=== PATIENT | female | born 1950 | race Caucasian/White ===

== ENCOUNTER 2018-03-31 04:24 | Inpatient (IN) | payer MEDICARE ==
[~2018-03-31] VITALS: Ht 170.2 cm; Wt 56.7 kg
[~2018-03-31 04:24] MED LIST: IBUP200C5 PO
[2018-03-31] MEDS ORDERED: MAG HYDROX/AL HYDROX/SIMETH 30 ML UDC PO PRN (06:00)
[2018-03-31] MEDS ORDERED: MAGNESIUM HYDROXIDE 30 ML UDC PO PRN (06:00)
[2018-03-31] MEDS ORDERED: ACETAMINOPHEN 325 MG TABLET PO PRN (06:00)
[2018-03-31 08:00] VITALS: BP 124/75
--- NOTE | 2018-03-31 08:22 | NUR ---
NEEDLE GRADER NOTE: REPORT GIVEN FROM HI TEACHER. PATIENT ARRIVED ON THE UNIT AT 0600. PATIENT IS CONFUSED AND IS A POOR HISTORIAN. UNABLE TO DO MUCH ASSESSING. PATIENT REFUSED TO SIGN ADMISSION PAPERS. BELONGINGS LOGGED INTO THE CHART. SKIN ASSESSMENT DONE AND IN CHART. PSYCHIATRIST NOTIFIED AND ORDERS IN. MED RECON IS BEING DONE AT THE MOMENT BY EFREM. PATIENT IS CONFUSED AND SLEEPING. UNIT POLICY AND PROCEDURES WILL BE EXPLAINED TO PATIENT UPON WAKING UP.
--- NOTE | 2018-03-31 11:11 | NUR ---
INITIAL DISCHARGE PLAN: Per pts sister Angel De Luna [phone], pt may need SNF placement. However stated that if pt refuses to go to a SNF her and sister Anne-Marie [phone] will pick pt up from hospital and take her to live with them in [facility]. SW will help form a safe and proper discharge in collaboration with MD and pts sisters.
[2018-03-31 16:10] VITALS: BP 118/79
[2018-03-31] MEDS: OLANZAPINE 5 MG/TAB.RAPDIS PO SCH ×2 (21:00→21:13)
[2018-03-31] MEDS: ZOLPIDEM TARTRATE 5 MG TABLET PO PRN (21:13)
--- NOTE | 2018-03-31 21:15 | NUR ---
GPS RN NOTES. PT. COMPLAINING OF BEING UNABLE TO FALL ASLEEP. ZOLPIDEM GIVEN ORDERED WILL CONTINUE TO MONITOR FOR SAFETY.
[2018-04-01 07:55] LABS: CHOLESTEROL 127 mg/dL (<200); HDL CHOLESTEROL 64 mg/dL (40-60); LDL 56 mg/dL (0-99); TRIGLYCERIDES 61 mg/dL (30-150)
[2018-04-01 07:57] LABS: ALBUMIN 3.2 g/dL (3.4-5.0); BILIRUBIN,TOTAL 1.5 mg/dL (0.2-1.0); CREATININE 0.5 mg/dL (0.6-1.3); POTASSIUM 3.4 mmol/L (3.5-5.1); TOTAL PROTEIN, SERUM 7.6 g/dL (6.4-8.2)
[2018-04-01 08:15] VITALS: BP 121/82
[2018-04-01] MEDS: OLANZAPINE 5 MG/TAB.RAPDIS PO SCH ×2 (09:00→21:00)
--- NOTE | 2018-04-01 09:33 | NUR ---
GPS/RN-NOTES PATIENT REFUSED ZYPREXA 2.5MG P.O DESPITE ENCOURAGEMENT . OFFERED X3 PATIENT STATED" NO, I DON'T WANT IT".
[2018-04-01] MEDS ORDERED: POTASSIUM CHLORIDE 20 MEQ TAB.PRT.SR PO ONE (10:00)
[2018-04-01 10:01] LABS: BASOPHILS % (AUTO) 0.2 % (0.0-2.0); EOSINOPHILS % (AUTO) 0.9 % (0.0-6.0); HEMATOCRIT 42 % (33-45); HEMOGLOBIN 13.8 g/dL (11.5-14.8); LYMPHOCYTES # (AUTO) 1.7 /CMM (0.8-4.8); LYMPHOCYTES % (AUTO) 23.3 % (20.0-44.0); MEAN CORPUSCULAR HEMOGLOBIN 33 PG (26.0-33.0); MEAN CORPUSCULAR HGB CONC 33 g/dl (31.0-36.0); MEAN CORPUSCULAR VOLUME 100 fL (82-100); MONOCYTES # (AUTO) 0.7 /CMM (0.1-1.30); MONOCYTES % (AUTO) 10.2 % (2.0-12.0); NEUTROPHILS # (AUTO) 4.7 /CMM (1.8-8.9); NEUTROPHILS % (AUTO) 65.4 % (43.0-81.0); PLATELET COUNT (AUTO) 199 /CMM (150-450); RDW COEFFICIENT OF VARIATION 13.9 (11.5-15.0); RED BLOOD CELL COUNT(AUTO) 4.15 MIL/uL (4.0-5.2); WHITE BLOOD COUNT (AUTO) 7.3 K/uL (4.3-11.0)
[2018-04-01 16:00] VITALS: BP 128/84
[2018-04-01 20:00] VITALS: BP 116/76
--- NOTE | 2018-04-01 20:05 | NUR ---
GPS RN NOTE: RECEIVED PATIENT IN TV ROOM ALERT AND ORIENTED X 3, CALM, WATCHING TV. NO ACUTE DISTRESS NOTED. DENIES SI, HI. NO C/O PAIN OR DISCOMFORT AT THIS TIME. WILL CONTINUE TO MONITOR Q15MIN ROUNDS FOR SAFETY AND BEHAVIOR.
--- NOTE | 2018-04-01 21:05 | NUR ---
REFUSED ZYDIS HS DOSE.
--- NOTE | 2018-04-01 23:30 | NUR ---
PT AGITATED, WALKING IN HALLWAY WITH WALKER AND TRIED TO PULL FIRE ALARM. HOSTILE TO STAFF. REFUSING PRNS. STATED SHE "WILL CALL NUTRITION REPRESENTATIVE DIPAK SYKES TO GET PRESIDENT HOLLY TO GIVE HER THIS BUILDING BECAUSE SHE IS NOT ALLOWED TO LEAVE TONIGHT". REDIRECTED WITH EMOTIONAL SUPPORT AND REALITY ORIENTATION PROVIDED AND PATIENT ESCORTED BACK TO ROOM WITHOUT INCIDENT.
--- NOTE | 2018-04-02 04:20 | NUR ---
PT AWAKE ALL NIGHT, HYPERVERBAL IN BED TALKING TO HERSELF. REALITY ORIENTATION PRN, REFUSES PRNS.
[2018-04-02] MEDS: OLANZAPINE 5 MG/TAB.RAPDIS PO SCH ×3 (08:02→21:00)
[2018-04-02] MEDS: LORAZEPAM 1 MG TABLET PO PRN (08:02)
--- NOTE | 2018-04-02 08:02 | NUR ---
RN NOTES ADMINISTERED ATIVAN 1 MG PO PRN FOR ANXIETY, PARANOIA, PATIENT AWOL RISK. V/S TAKEN BP -150/95, P-96, CONTINUED MONITORING.
[2018-04-02 09:15] VITALS: BP 150/95
[2018-04-02 16:00] VITALS: BP 147/97
--- NOTE | 2018-04-02 21:10 | NUR ---
PT REFUSED ZYPREXA ZYDIS AT 2100 STARTED LAUGHING LOUDLY AND REMAINS HOSTILE TO STAFF WHEN INTERACTION INITIATED. CONTINUES TO WATCH TV GUARDED WITHOUT INTERACTION WITH PEERS OR STAFF.
[2018-04-02 21:14] VITALS: BP 133/81
--- NOTE | 2018-04-02 23:06 | NUR ---
AUDITORY HALLUCINATIONS, HAVING CONVERSATIONS LOUDLY IN BED. REALITY ORIENTATION PRN AND LINE OF SIGHT FOR SAFETY.
--- NOTE | 2018-04-03 07:20 | NUR ---
gps rn initial notes Received patient in the room standing up and verbally talking. Per night nurse patient did not sleep all night and refused all her medications. Will continue to monitor and encourage patient to take her medications.
[2018-04-03 08:00] VITALS: BP 118/88
[2018-04-03] MEDS: OLANZAPINE 5 MG/TAB.RAPDIS PO SCH ×2 (08:25→20:50)
[2018-04-03 09:00] VITALS: BP 118/88
[2018-04-03] MEDS: FOLIC ACID 1 MG TABLET PO SCH ×2 (10:30→11:12)
[2018-04-03] MEDS: THIAMINE HCL 100 MG TABLET PO SCH ×2 (10:30→11:12)
[2018-04-03] MEDS: LORAZEPAM 1 MG TABLET PO PRN (11:12)
--- NOTE | 2018-04-03 11:22 | NUR ---
gps notes Patient is agitated and ativan 1 mg was about to give and patient threw away the medication on the floor and wasted with other RN. Will continue to monitor patient and agitation.
--- NOTE | 2018-04-03 11:32 | NUR ---
gps notes patient refused blood draw.
[2018-04-03 16:00] VITALS: BP 153/93
--- NOTE | 2018-04-03 19:18 | NUR ---
RN Notes Patient in the activity room, sitting in Kelsy chair, watching TV. Pt is alert and oriented x1, confused and disoriented, and continously talking to herself, constant reorientation given. Will continue to monitor and maintain safety.
[2018-04-03 19:56] VITALS: BP 161/90
[2018-04-04 08:00] VITALS: BP 147/85
[2018-04-04] MEDS: FOLIC ACID 1 MG TABLET PO SCH (08:31)
[2018-04-04] MEDS: THIAMINE HCL 100 MG TABLET PO SCH (08:31)
[2018-04-04] MEDS: OLANZAPINE 5 MG/TAB.RAPDIS PO SCH ×2 (08:31→22:06)
--- NOTE | 2018-04-04 10:46 | NUR ---
RN NOTE: PATIENT IS AGITATED. BOBBI ORDERED ZYPREXA 10 MG IM NOW. GIVEN.
[2018-04-04] MEDS ORDERED: OLANZAPINE 10 MG VIAL IM ONE (11:00)
[2018-04-04 16:48] VITALS: BP 107/73
[2018-04-04] MEDS: LORAZEPAM 1 MG TABLET PO PRN (17:42)
--- NOTE | 2018-04-04 17:47 | NUR ---
RN NOTE: PATIENT IS YELLING AND TALKING TO SELF. MAKING THREATS. LORAZEPAM PRN ATTEMPTED TO BE GIVEN, BUT PATIENT SPIT IT BACK OUT.
--- NOTE | 2018-04-04 19:00 | NUR ---
RN NOTES RECEIVED PT IN BED. EASILY AWOKEN. NO APPARENT S/S OF DISTRESS AT THIS TIME. WILL CONTINUE TO MONITOR FOR PATIENT SAFETY.
[2018-04-04 20:22] VITALS: BP 124/85
[2018-04-05 08:00] VITALS: BP 130/78
[2018-04-05] MEDS: THIAMINE HCL 100 MG TABLET PO SCH (08:38)
[2018-04-05] MEDS: OLANZAPINE 5 MG/TAB.RAPDIS PO SCH ×2 (08:38→21:09)
[2018-04-05] MEDS: LORAZEPAM 1 MG TABLET PO PRN (08:38)
[2018-04-05] MEDS: FOLIC ACID 1 MG TABLET PO SCH (08:38)
[2018-04-05] MEDS: CYANOCOBALAMIN 1,000 MCG/ML VIAL IM SCH (09:00)
[2018-04-05 12:16] LABS: APPEARANCE,URINE CLEAR (CLEAR); BILIRUBIN,URINE NEGATIVE (NEGATIVE); BLOOD, URINE NEGATIVE Ery/uL (NEGATIVE); COLOR,URINE YELLOW (YELLOW); KETONES,URINE 1+ (NEGATIVE); LEUKOCYTE ESTERASE ,URINE 2+ (NEGATIVE); NITRITE, URINE NEGATIVE (NEGATIVE); PROTEIN,URINE NEGATIVE (NEGATIVE); UGLUCOSE NEGATIVE (NEGATIVE); UROBILINOGEN,URINE 0.2 EU/dL (0.2)
[2018-04-05 12:30] LABS: BACTERIA,URINE Moderate /HPF (None Seen); MUCUS,URINE Few /LPF (None Seen); RBC,URINE 0-2 /HPF (0-2); SQUAMOUS EPITHELIAL CELL,UR Few /HPF (None Seen); WBC,URINE 21-50 /HPF (0-3)
[2018-04-05 16:00] VITALS: BP 110/80
--- NOTE | 2018-04-05 19:25 | NUR ---
GPS RN OPENING NOTE: RECEIVED PT IN ACTIVITY ROOM SITTING ON PARI CHAIR AND WATCHING TELEVISION. NO COMPLAINTS OF PAIN. NO S/S OF DISTRESS. PT ON ROOM AIR AND TOLERATING WELL; SPO2 98%. PT IS A/OX1 AND DISORIENTED, CONFUSED, AND NEEDS CONSTANT REORIENTATION. PT DENIES SUICIDE IDEATIONS. PT HAS NO NEEDS AT THIS TIME. PT EDUCATED TO USE CALL LUND. BED KEPT IN LOW, LOCKED POSITION, AND SIDE RAILS X UP. WILL CONTINUE TO MONITOR PT.
[2018-04-05 20:00] VITALS: BP 97/62
[2018-04-05 20:08] VITALS: BP 124/85
[2018-04-05] MEDS: CEPHALEXIN MONOHYDRATE 500 MG CAPSULE PO SCH (20:11)
--- NOTE | 2018-04-05 21:09 | NUR ---
GPS RN NOTE: HAD TO MANUALLY ADMINISTER OLANZAPINE 5MG BAR GUN NOT SCANNING BAR CODE FROM MED.
--- NOTE | 2018-04-06 06:30 | NUR ---
GPS RN CLOSING NOTE: ALL NEEDS WERE ATTENDED AND ANTICIPATED FOR. PT RESTING IN BED AT THIS TIME IN SEMI DELAROSA'S POSITION. NO SOB NOTED. NO S/S OF DISTRESS. CALL LUND WITHIN PT'S REACH. BED KEPT IN LOW, LOCKED POSITION, AND SIDE RAILS X 2UP. WILL ENDORSE TO AM NURSE FOR CHANDANA.
--- NOTE | 2018-04-06 08:00 | NUR ---
GPS RN AM NOTE: RECEIVED PT IN BED READING A NEWSPAPER. NO COMPLAINTS OF PAIN. NO S/S OF DISTRESS. PT ON ROOM AIR AND TOLERATING WELL; SPO2 98%. PT IS A/OX1 AND DISORIENTED, CONFUSED, AND NEEDS CONSTANT REORIENTATION. PT DENIES SUICIDE IDEATIONS. PT HAS NO NEEDS AT THIS TIME. PT EDUCATED TO USE CALL LUND. BED KEPT IN LOW, LOCKED POSITION, AND SIDE RAILS X UP. WILL CONTINUE TO MONITOR PT.
[2018-04-06 08:23] VITALS: BP 160/80
[2018-04-06] MEDS: FOLIC ACID 1 MG TABLET PO SCH (08:57)
[2018-04-06] MEDS: OLANZAPINE 5 MG/TAB.RAPDIS PO SCH (08:57)
[2018-04-06] MEDS: LORAZEPAM 1 MG TABLET PO PRN (08:57)
[2018-04-06] MEDS: THIAMINE HCL 100 MG TABLET PO SCH (08:57)
[2018-04-06] MEDS: CEPHALEXIN MONOHYDRATE 500 MG CAPSULE PO SCH ×2 (08:57→21:40)
[2018-04-06] MEDS: CYANOCOBALAMIN 1,000 MCG/ML VIAL IM SCH (09:07)
--- NOTE | 2018-04-06 14:51 | NUR ---
SW contacted [facility] by Edison Aguilar [address], [place] [address] per MD's request to verify if pt had a reservation booked for the rest of the month. Per crib clerk pt does not have a reservation and is not able to return to the hotel due to her behavior.
[2018-04-06 16:27] VITALS: BP 122/82
[2018-04-06 20:00] VITALS: BP 108/64
--- NOTE | 2018-04-06 21:40 | NUR ---
PATIENT REFUSED OLANZAPINE.OFFERED 3 TIMES , EXPLAINED THE RISKS AND BENEFITS. PATIENT STILL REFUSE. WILL ENDORSE IT TO THE NEXT SHIFT FOR CHANDANA.
[2018-04-06] MEDS ORDERED: OLANZAPINE 5 MG/TAB.RAPDIS PO SCH (22:00)
[2018-04-07 08:00] VITALS: BP 117/69
[2018-04-07] MEDS: THIAMINE HCL 100 MG TABLET PO SCH (09:33)
[2018-04-07] MEDS: OLANZAPINE 5 MG/TAB.RAPDIS PO SCH ×2 (09:33→22:00)
[2018-04-07] MEDS: FOLIC ACID 1 MG TABLET PO SCH (09:33)
[2018-04-07] MEDS: CYANOCOBALAMIN 1,000 MCG/ML VIAL IM SCH (09:33)
[2018-04-07] MEDS: CEPHALEXIN MONOHYDRATE 500 MG CAPSULE PO SCH ×2 (09:33→21:15)
--- NOTE | 2018-04-07 14:49 | NUR ---
SERG spoke with pts sister Anne-Marie [phone] to discuss discharge. SERG informed her that pt will be discharging Tuesday04/10/18 and wishes to be discharged to a hotel via taxi. Per pts sister, pt has no where to go and does not have money to pay for a hotel. Pts sister disagrees with discharge plan and stated that she would try to convince pt to return to [place] to live with her. SERG stated to pts sister that SW has to respect pts wishes and per MD he has stated that it is okay for pt to be discharged to a hotel. SERG will help plan a safe and proper discharge in collaboration with pt and sister.
[2018-04-07 16:00] VITALS: BP 129/84
[2018-04-07 20:00] VITALS: BP 113/76
[2018-04-08] MEDS: ZOLPIDEM TARTRATE 5 MG TABLET PO PRN (00:11)
[2018-04-08 08:00] VITALS: BP 115/63
[2018-04-08] MEDS: FOLIC ACID 1 MG TABLET PO SCH (09:56)
[2018-04-08] MEDS: CEPHALEXIN MONOHYDRATE 500 MG CAPSULE PO SCH ×2 (09:56→21:12)
[2018-04-08] MEDS: THIAMINE HCL 100 MG TABLET PO SCH (09:56)
[2018-04-08] MEDS: OLANZAPINE 5 MG/TAB.RAPDIS PO SCH ×2 (09:56→21:12)
[2018-04-08] MEDS: CYANOCOBALAMIN 1,000 MCG/ML VIAL IM SCH (10:38)
[2018-04-08 16:00] VITALS: BP 110/71
--- NOTE | 2018-04-08 19:45 | NUR ---
GPS/RN OPENING NOTES PATIENT IN BED, RESTING COMFORTABLY IN BED, OBSERVE IN BED, COMPLIANT WITH CARE, SKIN WARM TO TOUCH, WILL MONITOR FOR S/S OF CHANGES IN BEHAVIOR.
[2018-04-08 20:00] VITALS: BP 124/82
--- NOTE | 2018-04-09 06:41 | NUR ---
GPS/RN NOTES PATIENT REFUSED BLOOD DRAW THIS AM PER LAB WILL TRY AGAIN LATER IN AM.
[2018-04-09 08:00] VITALS: BP 105/70
[2018-04-09] MEDS: FOLIC ACID 1 MG TABLET PO SCH (08:29)
[2018-04-09] MEDS: CEPHALEXIN MONOHYDRATE 500 MG CAPSULE PO SCH ×2 (08:29→21:08)
[2018-04-09] MEDS: THIAMINE HCL 100 MG TABLET PO SCH (08:29)
[2018-04-09] MEDS: CYANOCOBALAMIN 1,000 MCG/ML VIAL IM SCH (08:31)
[2018-04-09] MEDS: OLANZAPINE 5 MG/TAB.RAPDIS PO SCH ×3 (08:32→21:16)
--- NOTE | 2018-04-09 09:00 | NUR ---
GPS/RN PATIENT REFUSED ZYPREXA PO X 3, EXPLAINED RISKS AND BENEFITS, WILL CONTINUE TO ENCOURAGE TO COMPLY WITH MD REGIMEN.
[2018-04-09 16:00] VITALS: BP 111/62
--- NOTE | 2018-04-09 19:35 | NUR ---
GPS RN INITIAL NOTE PT RECEIVED SITTING IN DINING AREA WATCHING TV. A/O X2 AND ABLE TO VERBALIZE SOME NEEDS. NO S/SX OF DISTRESS NOTED. NO C/O PAIN NOTED. WILL CONTINUE TO MONITOR.
[2018-04-09 20:02] VITALS: BP 100/61
[2018-04-10 08:00] VITALS: BP 118/80
[2018-04-10] MEDS: CEPHALEXIN MONOHYDRATE 500 MG CAPSULE PO SCH (08:16)
[2018-04-10] MEDS: THIAMINE HCL 100 MG TABLET PO SCH (08:16)
[2018-04-10] MEDS: FOLIC ACID 1 MG TABLET PO SCH (08:17)
[2018-04-10] MEDS: OLANZAPINE 5 MG/TAB.RAPDIS PO SCH (08:20)
[2018-04-10] MEDS: CYANOCOBALAMIN 1,000 MCG/ML VIAL IM SCH (08:20)
--- NOTE | 2018-04-10 12:15 | NUR ---
GPS RN NOTE: PATIENT DISCHARGE TO TO [facility] [phone], [address] [facility] ,[facility] NOTIFIED. PT IN STABLE CONDITION NO S/S DISTRESS NOTED , DENIES SI/HI, NO C/O PAIN OR DISCOMFORT, PT AMBULATORY WITH WALKER,A/O X4 SELF CARE. EXIT CARD DONE ,PRINTED ,SIGN AND GIVEN TO PATIENT. PRESCRIPTION EXPLAIN AND GIVEN TO PT. PT REFUSED SKIN ASSESSMENT ,ALL BELONGINGS AND VALUABLES RETURNED TO PT.
--- NOTE | 2018-04-10 13:48 | NUR ---
DISCHARGE NOTE: Pt was discharged at 11:30am to [facility] [phone] Address: [address] [facility]. Pts sister Liza [phone] was notified and agreed with discharge plan. Pts mood was happy with congruent affect. Pt denied suicidal/homicidal ideations and denied visual/auditory hallucinations. Pt was given a referral for mental health services at [facility] [address] [place], [place] [id number] and will schedule a follow-up appointment with Windshield Wiper Repairer: Dr. Velma Ponce [address] [address] [place] [address] . . Patient was provided referrals to address her substance and alcohol use. Patient was referred to the [address] [address] / and was encouraged to present at 9am on Wednesday April 11, 2018. Additional resources included [facility] [address] [place] [address] and [facility] [address] [place] [address] .The multidisciplinary exitcare form was done, printed, signed, and given to the patient.
== END 2018-04-10 12:15 | disposition home or self-care (01) | DRG 885 ==
LOC: GPS 05:33
PROVIDERS: ADMIT Psychiatry & Neurology Psychiatry; ATTEND Internal Medicine
DX: F29 Unspecified psychosis not due to a substance or known physiological condition (principal); E44.1 Mild protein-calorie malnutrition; N39.0 Urinary tract infection, site not specified; Z68.1 Body mass index [BMI] 19.9 or less, adult; F41.9 Anxiety disorder, unspecified; E87.6 Hypokalemia; Z59.0 Homelessness; Z73.6 Limitation of activities due to disability; F31.2 Bipolar disorder, current episode manic severe with psychotic features; E88.09 Other disorders of plasma-protein metabolism, not elsewhere classified
CPT/HCPCS: 36415; 70450-TC; 80053-TC; 80061-TC; 81000-TC; 84425; 84443-TC; 85025-TC; 87086-TC; J3420; J3490